=== PATIENT | female | born 1990 | race Caucasian/White ===

== ENCOUNTER → 2017-12-25 15:11 | Outpatient (CLI) | payer OTHER, SELFPAY ==
--- NOTE | 2017-12-25 15:17 | CT_ITS ---
STUDY: CT ABDOMEN AND PELVIS WITH CONTRAST REASON FOR EXAM: Female, 27 years old. Anal cancer. RADIATION DOSAGE (If Supplied By Facility): CTDIvol = ( 8.07 ) mGy, DLP = ( 306.68 ) mGycm TECHNIQUE: Transaxial images were obtained from the dome of the diaphragm to the symphysis pubis without oral contrast. 75 ml of Isovue 300 contrast was administered. Sagittal and coronal images were reconstructed. Individualized dose optimization techniques were used for this CT. COMPARISON: None. FINDINGS: The visualized lung bases are unremarkable. The visualized portions of the heart are within normal limits. Normal liver. Normal gallbladder and extrahepatic biliary system. Normal spleen. Normal pancreas. Normal bilateral adrenal glands. There are bilateral renal cysts present. Normal visualized stomach. Normal small intestine. Normal colon. There is circumferential wall thickening of the distal rectum/anus. The appendix is visualized and appears normal. Normal abdominal aorta. Normal inferior vena cava. Normal retroperitoneum. Normal urinary bladder. Within the right lower quadrant the right ovary is visualized. There are surgical clips within the inguinal region bilaterally. Within the right inguinal region there is a 2.1 x 2.1 cm fluid collection. There is a subcutaneous focus of air adjacent to surgical clips within the left inguinal region consistent with recent intervention. There is a pathologically enlarged left inguinal lymph node that measures 1.5 x 1.9 x 1.8 cm. There are prominent left external iliac lymph nodes measuring up to 8 mm in short axis. Normal osseous structures. There is a 5 mm subcutaneous nodule overlying the right lateral mid/lower hemithorax (image 14 series 602 and image 8 [address] 2). CT/Abdomen/Pelvis WITH Contrast IMPRESSION: Pathologically enlarged left inguinal lymph node concerning for underlying neoplastic involvement. Prominent left external iliac lymph nodes. Focal fluid collection within the right inguinal region likely secondary to prior intervention. Circumferential wall thickening of the distal rectum/anus which may reflect underlying neoplastic process. Indeterminate 5 mm subcutaneous soft tissue nodule overlying the right lateral mid/lower hemithorax, a ultrasound may be useful for further evaluation. Electronically Signed: Morena Hearn MD at 16:11 EDT Tel , Service support ,
[2017-12-25 15:31] LABS: CREATININE FINGERSTICK 0.8 mg/dL (0.55-1.02); EGFR FINGERSTICK > 60.0000 mL/min (>60)
== END ==
PROVIDERS: Family Provider Family Medicine; PCP Family Medicine
DX: C21.0 Malignant neoplasm of anus, unspecified (principal)
CPT/HCPCS: 74177; Q9967

== ENCOUNTER → 2018-01-04 06:35 | Outpatient (CLI) | payer OTHER, SELFPAY ==
[2017-12-31 10:33] VITALS: BMI 19.0
--- NOTE | 2018-01-04 07:00 | PET_ITS ---
EXAMINATION: FDG PET CT INDICATIONS: A 27-year-old female with history of colorectal carcinoma presenting for initial staging examination. COMPARISON EXAMINATION: CT of the abdomen and pelvis report dated 12/25/17. INDEX LESION SIZE SUV INTERPRETATION Rectum-rectal vault 29.2 mm x 40.1 mm (frame 42) 17.3 Fulfills quantitative criteria for viable neoplasm Left hemipelvis, inguinal region soft tissue adenopathy, lymph nodes 11.5 mm x 24.4 mm largest (frame 67) 8.4 (max) Fulfills quantitative criteria for viable neoplasm NON-INDEX LESION SIZE SUV INTERPRETATION Lower pelvis, uterus 15.5 mm 4.8 May warrant further investigation with pelvic ultrasound secondary to the quantitative degree of uptake TECHNIQUE: Following the intravenous administration of 14.4 mCi of F-18 deoxyglucose via the left antecubital fossa, multiplanar image acquisitions of the neck, chest, abdomen and pelvis to level of mid thigh, obtained at one hour post radiopharmaceutical administration contemporaneously interpreted with the current CT of the neck, chest, abdomen and pelvis to level of mid thigh, dated 01/04/[address] of the abdomen and pelvis report dated 12/25/17 reveal: SERUM GLUCOSE LEVEL: 89 mg/dl. HEIGHT: 63 inches. WEIGHT: 105 lbs. FINDINGS: 1. Intense increased glucose metabolism is manifest in the distal rectal vault extending to the level of the anal verge. The calculated maximum standard uptake value is 17.3. The maximal axial diameter of the corresponding metabolic, morphologic abnormality on review of CT of the abdomen and pelvis dated 01/04/18 is 29.2 mm (transverse) x 40.1 mm (AP). 2. Enhanced radiopharmaceutical concentration is multifocally defined in the left hemipelvis and left inguinal lymph node distributions generating a calculated maximum standard uptake value of 8.4. The maximal axial diameter of the largest metabolic, morphologic abnormality on review of CT of the pelvis dated 01/04/18 is 11.5 mm (transverse) x 24.4 mm (AP). 3. Normal physiologic distribution of the radiopharmaceutical is apparent in the hepatic (2.2) and splenic parenchyma, both renal units, bladder and visualized intestinal tract. There is uniform distribution of the radiopharmaceutical concentration compared on the cerebellar hemispheres and cerebral cortex. Diffuse intestinal tract activity is noted throughout all four quadrants of the abdominal-pelvic retroperitoneum, mesentery consistent with normal physiologic distribution of the radiopharmaceutical. There is increased glucose concentration noted in the anterior neck, laryngeal structures contiguous to the region of the arytenoid cartilage without evidence of soft tissue thickening most consistent with physiologic distribution of the radiopharmaceutical. Prominent glucose metabolism is defined in the lower pelvis cephalad to the urinary bladder contiguous to the uterus generating a calculated maximum standard uptake value of 4.8. The maximal axial diameter of the metabolic abnormality is approximately 15.[address] findings are as follows. CHEST: There are no parenchymal densities-nodules demonstrated in the right-left hemithorax manifesting quantitatively significant increased glucose metabolism. Bilateral axillary soft tissue densities with fatty hilus formation are ametabolic. ABDOMEN AND PELVIS: Surgical clips are identified in the bilateral inguinal regions. Right inguinal soft tissue densities are non-glucose avid. SKELETAL: There are no well-defined lytic-sclerotic changes noted in the visualized osseous skeletal structures. PET/PET/CT Tumor Base -Thigh Init IMPRESSION: 1. ABNORMAL EXAMINATION INDICATIVE OF MALIGNANT VIABLE NEOPLASM. 2. Increased radiopharmaceutical concentration defined in the distal rectum, rectal vault fulfills quantitative criteria for viable neoplasm. 3. Enhanced glucose metabolism multifocally apparent in the left hemipelvis and left inguinal regions corresponding to soft tissue adenopathy, lymph nodes fulfills quantitative criteria for viable neoplasm. 4. Facilitated Humera radiolabeled glucose radiotracer demonstrated in the lower pelvis contiguous to the uterus may be further investigated with pelvic ultrasound if clinically indicated secondary to the quantitative degree of uptake. Electronic Signature Wilbur Mcconnell D.O. Electronically Signed: Wilbur Mcconnell DO at 23:16 EDT Tel , Service support ,
== END ==
PROVIDERS: Family Provider Family Medicine; PCP Family Medicine; Visit Provider Internal Medicine Hematology & Oncology
DX: C21.0 Malignant neoplasm of anus, unspecified (principal); C77.9 Secondary and unspecified malignant neoplasm of lymph node, unspecified
CPT/HCPCS: 78815; A9552; A4216

== ENCOUNTER → 2018-01-07 16:31 | Outpatient (CLI) | payer OTHER, SELFPAY ==
[2017-12-31 10:33] VITALS: BMI 19.0
--- NOTE | 2018-01-07 16:53 | MRI_ITS ---
STUDY: MR PELVIS WITH T WITHOUT CONTRAST REASON FOR EXAM: Female, 27 years old. Malignant neoplasm of the anus. Cancer involving the distal rectum and anal canal. Rectal pain since 2016. Recent diagnosis. Surgery 12/14/2017 to remove suspected hemorrhoid turned out to be cancer. TECHNIQUE: Multisequence multiplanar MRI of the pelvis was performed without and with IV contrast, with large FOV and small FOV imaging of the pelvis oriented to the anorectum. IV contrast Gadavist 5 mL. COMPARISON: PET/CT 01/04/2018. CT abdomen and pelvis 12/25/2017. FINDINGS: Enlarged left inguinal lymph node short axis I.6 cm. There is a fluid collection in the right inguinal region measuring about 1.7 cm apparently from recent angle lymph node excisional biopsy. The left-sided inguinal lymph node was hypermetabolic on the recent PET scan. An additional adjacent smaller lymph node was also hypermetabolic. Right iliac chain, no apparent lymphadenopathy. Left iliac chain, several small lymph nodes, the largest adjacent to the distal external iliac artery measuring about 12 x 6 mm. Each of these iliac chain lymph nodes with hypermetabolic on recent PET imaging. Vagina, cervix and uterus: The uterus is sharply anteverted. Normal myometrium, normal endometrium, normal appearance of cervix and vagina. Ovaries: Each ovary contains multiple small physiologic follicles without mass or suspicious cyst. Large bowel to the rectum: Unremarkable. Anorectum: Beginning at the anorectal junction, above the puborectalis sling, and extending downward into the anus, there is marked circumferential irregular nodular thickening of the wall.. Consistent with neoplasm. The fat plane between the anorectum in the posterior vaginal wall appears to be preserved. There is no definitive extension of neoplasm beyond the serosal margin of the anorectum. There are small lymph nodes in the presacral fat, the largest measuring approximate 7 x 5 mm. These were not hypermetabolic on prior PET imaging. There is a borderline enlarged lymph node within the left sciatic notch measuring 10 x 7 mm. This was hypermetabolic on recent PET scan. There are a few tiny lymph nodes within the perirectal fat, nonspecific. The anorectal tumor appears to have a greatest craniocaudal dimension of approximately 4.9 cm, greatest thickness of the irregular wall up to 13 mm. MRI/Pelvis W/WO Contrast IMPRESSION: Irregular lobulated thickening of the wall of the anorectum is consistent with neoplasia portions of which are circumferential, concordant with the hypermetabolic activity on PET scan. Lymphadenopathy in the left sciatic notch, along the left iliac chain, and in the left inguinal region are highly suspicious for metastatic disease. These were hypermetabolic on PET CT scan. Additional small presacral lymph nodes and very small lymph nodes in the perirectal fat are nonspecific. These were not hypermetabolic on the recent PET/CT scan. Electronically Signed: Wilbur Bojorquez, at 19:39 EDT Tel , Service support ,
== END ==
PROVIDERS: Family Provider Family Medicine; PCP Family Medicine; Visit Provider Student in an Organized Health Care Education/Training Program
DX: C21.0 Malignant neoplasm of anus, unspecified (principal)
CPT/HCPCS: 72197; A9585

== ENCOUNTER 2018-02-08 02:42 | Emergency (ER) | payer OTHER, SELFPAY ==
[2017-12-31 10:33] VITALS: BMI 19.0
[2018-02-08 02:43] VITALS: BP 136/91; PULSE 121; RESP 18; TEMP 36.9; O2SAT 100; BMI 18.7
[2018-02-08 03:17] VITALS: BP 102/63; BP 119/64; BP 121/69; PULSE 111; PULSE 114; PULSE 118
[2018-02-08 03:21] LABS: Absolute Neutrophil Count 4.8 X10^3/uL (2.0-7.7); Basophil# 0.04 X10^3/uL; Basophil% 0.6 % (0-1); Eosinophil# 0.19 X10^3/uL; Eosinophils% 2.9 % (0-5); Hematocrit 31.3 % (37-47); Hemoglobin 9.7 g/dl (12.0-15.0); Mean Corpuscular Hgb 26.9 pg (27.0-32.0); Mean Corpuscular Volume 86.7 fL (81-99); Mean Platelet Vol. 8.1 fl (6.2-12.0); Monocyte# 0.47 X10^3/uL; Monocyte% 7.1 % (0-10); Neutrophil # 4.76 X10^3/uL (2.7-7.7); Neutrophil % 71.4 % (47-70); Platelet Count 294 K/mm3 (150-450); RBC Distribution Width SD 54.6 fl (35.1-43.9); Red Blood Count 3.61 M/mm3 (4.2-5.4); White Blood Count 6.7 K/mm3 (4.4-11.0)
[2018-02-08 03:23] LABS: POSITIVE COUNT NO; POSITIVE DIFFERENTIAL NO; POSITIVE MORPHOLOGY NO
[2018-02-08 03:35] LABS: Anion Gap 9 (5-15); BUN 13 mg/dL (7-18); BUN/Creat Ratio 20.7 RATIO (10-20); Calcium,Total 8.4 mg/dL (8.5-10.1); Chloride 104 mmol/L (98-107); Creatinine, Serum 0.63 mg/dL (0.55-1.02); EST Glomerular Filtration Rate 120 mL/min (>60); Est Glom Filt Rate - Afr Amer 145 mL/min (>60); Estimated Creatinine Clearance 98.25 ml/min; Glucose 120 mg/dL (74-106); Potassium 3.4 mmol/L (3.5-5.1); Sodium Level 140 mmol/L (136-145)
--- NOTE | 2018-02-08 03:43 | ED.VISSUMM ---
- ER Visit Summary Date of Service: 02/08/18 Chief Complaint: [Rectal bleeding] History of Present Illness: The patient is a 27 F [presents to the emergency department with rectal bleeding that she noted this morning when she got up to use the restroom to urinate. Patient states that when she wiped she noted there was blood from the rectum. Patient states she noticed this about 2:30 AM. Patient does have a history of rectal/anal cancer and several weeks ago had a diverting colostomy performed at [facility]. Patient is scheduled to start chemotherapy in 1 week. Patient denies feeling lightheaded or dizzy. Patient denies passing clots. Patient states that when she was having bowel movements through her rectum she had had intermittent bleeding. Patient denies any blood in her colostomy bag.] Physical Examination: [HEENT-PERRLA, EOMI. Cranial nerves II through XII grossly intact. TMs clear. Mucous membranes moist. No adenopathy. Cardiovascular-regular rate and rhythm without murmur or ectopy Lungs-clear to auscultation, chest wall stable without crepitus or subcu emphysema Abdomen-normoactive bowel sounds, soft, nontender, no rebound or rigidity, no peritoneal signs. Rectal exam-patient has some bright red blood noted around the anus without any significant active bleeding. Patient does have firm and indurated tissue noted about the anal verge and mucosa is very tender to palpation in the tissue was friable easily bleeds. No clots noted. Extremities-intact ?4, normal range of motion, normal pulses, atraumatic] Test Results: [Type and screen was ordered and is pending. CBC with differential showed a white count of 6.7, hemoglobin 9.7, hematocrit 31, platelets 294. Chemistries unremarkable.] Emergency Department Course and Treatment: [Patient had orthostatic vital signs that were negative. At this point her hemoglobin is 9.7 and 1 month ago it was 9.1. I feel patient can be discharged to home with observation and return if persistent or worsening of the bleeding.] Treatment Plan: [Patient advised to follow-up with her primary care physician or surgeon within the next 3-5 days.] Disposition: [Discharged home in stable condition] Impression: [Rectal bleeding-stable Bleeding from rectal mass] This note was generated with [employer] software. It may contain incorrect words, spelling, and punctuation that were not noted in review of the chart prior to signing ED Disposition - Plan for ED Patient: Chief Complaint: GI Bleed Referrals: Joshua Gambino DO [Primary Care Provider] -
--- NOTE | 2018-02-08 03:47 | ED.DEP ---
ED Disposition - Plan for ED Patient: Chief Complaint: GI Bleed Instructions: ED Hematochezia Stable Referrals: Joshua Gambino DO [Primary Care Provider] - Additional Instructions: see your surgeon if persistent or worsening bleeding
[2018-02-08 03:53] VITALS: BP 115/73; PULSE 104; RESP 18; O2SAT 98
--- NOTE | 2018-02-08 03:55 | NURSING ---
DID A RECTAL EXAM AND SOME BLEEDING NOTED BUT NO ACTIVE BLEEDING.
== END 2018-02-08 04:00 | disposition home or self-care (01) ==
LOC: ED 03:33
PROVIDERS: Emergency Provider Emergency Medicine; Family Provider Family Medicine; PCP Family Medicine
DX: C20 Malignant neoplasm of rectum (principal); Z93.3 Colostomy status; Z79.899 Other long term (current) drug therapy
CPT/HCPCS: 80048; 85025; 86850; 86900; 99282

== ENCOUNTER → 2018-05-14 09:29 | Outpatient (CLI) | payer MEDICAID, SELFPAY ==
[2017-12-31 10:33] VITALS: BMI 19.0
--- NOTE | 2018-05-14 | IMM_PTH ---
PATIENT: ANISH ANAYA LOC: [facility] U#:[id number] AGE/SX: 35/F ROOM: RE05/14/[address]: Dr. Shelia Lima MD : 1990 BED: DIS: SPEC #: [id number] RECD: 05/17/18 12:45 STATUS: CHUY REQ #: [id number] KIERRA: 05/14/18 00:[address]: Shelia Lima DEPT: IMMUNOHISTOCHEMISTRY RECD BY: Pallavi Norwood ENTERED: 05/17/18 12:46 SP TYPE: IMMUNO OTHR DR: Dr. Joshua Gambino DO Tissues: Vulva, NOS Procedures: RCC (add) MSH2 (add) MLH-1 (add) MSH6 (add) Anti-PMS2 (add) NAPSIN A (add) CK20 (add) CK7 (add) CK8 (add) MENDIETA-2 (add) HEP PAR (add) KI-67 (add) P53 (add) IN (add) TTF1 (add) ER (initial) PHYSICIAN & [place] [phone] SPECIMEN INFORMATION: Tissue Source: Vulvar biopsy Clinical Info: Rectal cancer Specimen Number: [id number] CPT code: 46126, 26200 x14 METHODOLOGY: Deparaffinized sections of prefer/formalin-fixed tissue or PAP/DQ stained slides are incubated with monoclonal/polyclonal antibodies/oligonucleotide probes. Localization is made via biotin free immunoperoxidase method. Appropriate controls are performed and reacted as expected. Results on target cell population are indicated in the following table: RESULTS: ANTIBODY / CLONE RESULT ER (6F11) negative IN (1E2) negative CK7 (OV-TL12/30) negative CK8 (26cksoO92) positive CK20 (KS20.8) positive TTF-1 (8G7G3/1) negative HepPar (OCh1E5) negative RCC (PN-15) negative These tests were developed and their performance characteristics determined by [facility]. They may not have been cleared or approved by the U.S. Food and Drug Administration. The FDA has determined that such clearance or approval is not necessary. INTERPRETATION: Vulvar biopsy: Poorly differentiated metastatic carcinoma, consistent with colonic primary. GREGG:magdy 05/18/18 ADDENDUM ADDENDUM ADDENDUM ADDENDUM ADDENDUM ADDENDUM ADDENDUM ADDENDUM ADDENDUM ADDENDUM ADDENDUM ADDENDUM ADDENDUM ADDENDUM ADDENDUM ADDENDUM ADDENDUM 06/02/2018 14:12 ADDENDUM 06/02/2018 14:12 ADDENDUM 06/02/2018 14:12 ADDENDUM 06/02/2018 14:12 ADDENDUM 06/02/2018 14:12 ANTIBODY / CLONE RESULT Ki-67 (30-9) positive, high P53 (DO-7) positive MSH2 (25D12) positive, weak MSH6 (44) positive MLH-1 (M1) positive PMS2 (SMM7312) positive MENDIETA-2 (SP21) positive INTERPRETATION: Vulvar biopsy: Result of Microsatellite Instability Study: Negative (no loss of mismatch protein; no microsatellite instability detected). SJ:magdy 06/02/18
--- NOTE | 2018-05-14 | VUL_PTH ---
PATIENT: ANISH ANAYA LOC: [facility] U#:[id number] AGE/SX: 35/F ROOM: RE05/14/[address]: Dr. Shelia Lima MD : 1990 BED: DIS: SPEC #: [id number] RECD: 05/14/18 14:32 STATUS: CHUY NACHO #: [id number] KIERRA: 05/14/18 00:[address]: Shelia Lima DEPT: SURGICAL PATHOLOGY RECD BY: Wilber Diaz ENTERED: 05/14/18 14:33 SP TYPE: VULVA BX OTHR DR: Dr. Joshua Gambino DO Tissues: Vulva, NOS Procedures: Surgery Specimen Level IV HEADER OPERATION: Vulva biopsy PRE-OP DIAGNOSIS: Rectal cancer TISSUE SUBMITTED: Vulva MICROSCOPIC DIAGNOSIS Vulva, punch biopsy: Poorly differentiated metastatic adenocarcinoma, consistent with colonic primary. See comment. GREGG:magdy 05/17/18 COMMENT Immunohistochemistry ([id number]) supports the above diagnosis. The tumor is entirely subepithelial in location. Please make reference to previous specimen from [facility], dated 12/14/2017, [id number], Perianal tissue with diagnosis of moderately differentiated adenocarcinoma of colonic origin, and left femoral lymph node fwith diagnosis of gianluca tissue and soft tissue with metastatic, moderately differentiated adenocarcinoma of colonic origin. MICROSCOPIC DESCRIPTION Slides are reviewed. GROSS DESCRIPTION Received is one container labeled with the patient's name and not further designated. The specimen consists of one irregular fragment of light rios soft tissue that measures 0.3 x 0.3 x 0.1 cm. The specimen is totally submitted in one cassette. / GREGG:magdy 05/14/18 TC:0 CPT: 34082 ADDENDUM ADDENDUM ADDENDUM ADDENDUM ADDENDUM ADDENDUM ADDENDUM ADDENDUM ADDENDUM ADDENDUM 08/19/2018 09:37 ADDENDUM 08/19/2018 09:37 ADDENDUM 08/19/2018 09:37 ADDENDUM 08/19/2018 09:37 ADDENDUM 08/19/2018 09:37 This addendum is added to incorporate an outside pathology consultation report. The case was examined at [facility] (#[id number]) and the following diagnosis was rendered. Vulva, punch biopsy: Positive for adenocarcinoma of colorectal origin. Please see complete above mentioned consultation report in EMR
[2018-05-14 11:26] LABS: HIV - WCH Non-Reactive (Nonreactive)
[2018-05-14 16:39] LABS: Chlamydia Trachomatis by PCR Negative (Negative); Neisserai gonorrhoeae by PCR Negative (Negative); Probe Check PASS; Sample Adequacy Control PASS; Specimen Processing Control PASS
[2018-05-16 03:06] LABS: HCV Quant. RNA PCR HCV Not Detected IU/mL (.); HEPATITIS B SURFACE AG Negative (Negative); Hepatitis A IgM Antibody Negative (Negative); Hepatitis B Core AB IgM Negative (Negative)
[2018-05-16 08:05] LABS: Hep C Antibodies <0.1 s/co ratio (0.0-0.9)
[2018-05-21 02:59] LABS: Rapid Plasmin Reagin (RPR) NONREACTIVE (NONREACTIVE)
== END ==
PROVIDERS: Family Provider Family Medicine; PCP Family Medicine; Referring Provider Obstetrics & Gynecology; Visit Provider Obstetrics & Gynecology
DX: A74.9 Chlamydial infection, unspecified (principal); A64 Unspecified sexually transmitted disease; C20 Malignant neoplasm of rectum
CPT/HCPCS: 36415; 80074; 86592; 86703; 87491; 87522; 87591; 88305; 88341; 88342

== ENCOUNTER → 2018-05-31 08:46 | Outpatient (CLI) | payer MEDICAID, SELFPAY ==
[2017-12-31 10:33] VITALS: BMI 19.0
[2018-05-31 09:13] LABS: Platelet Count 52 K/mm3 (150-450)
[2018-05-31 09:18] VITALS: BP 98/69; PULSE 97; RESP 18; TEMP 36.9; O2SAT 100; BMI 18.3
[2018-05-31 09:21] LABS: Prothrombin Time (Protime)PT. 13.6 SECONDS (11.7-14.9)
[2018-05-31 09:22] LABS: Partial Thromboplast Time 32.1 Seconds (24.1-36.2)
== END ==
PROVIDERS: Family Provider Family Medicine; PCP Family Medicine; Referring Provider Internal Medicine Hematology & Oncology; Visit Provider Internal Medicine Hematology & Oncology
DX: C20 Malignant neoplasm of rectum (principal); C77.9 Secondary and unspecified malignant neoplasm of lymph node, unspecified; R93.89 Abnormal findings on diagnostic imaging of other specified body structures
CPT/HCPCS: 36415; 85049; 85610; 85730; J7040; A4216

== ENCOUNTER → 2018-08-09 14:31 | Outpatient (CLI) | payer MEDICAID, SELFPAY ==
[2017-12-31 10:33] VITALS: BMI 19.0
[2018-08-03 09:58] VITALS: BMI 19.2
--- NOTE | 2018-08-09 14:32 | CT_ITS ---
STUDY: CT ABDOMEN AND PELVIS WITH CONTRAST REASON FOR EXAM: Female, 28 years old. RADIATION DOSAGE (If Supplied By Facility): CTDIvol = ( 7.36 ) mGy, DLP = ( 502.48 ) mGycm TECHNIQUE: Transaxial images were obtained from the dome of the diaphragm to the symphysis pubis without oral contrast. 100 ml of Isovue 300 contrast was administered. Sagittal and coronal images were reconstructed. Individualized dose optimization techniques were used for this CT. COMPARISON: Report of December 25, 2017. FINDINGS: The visualized lung bases are unremarkable. The visualized portions of the heart are within normal limits. There are multiple hypodensities seen within the right and left lobe of the liver consistent with metastases these were not present before in the report of December 25, 2017. Normal gallbladder and extrahepatic biliary system. Normal spleen. Normal pancreas. Normal bilateral adrenal glands. The right kidney revealed a small intraparenchymal cyst measures about 2 cm in diameter.. The left kidney shows tiny cortical cyst posteriorly. No hydronephrosis seen on either side. There is colostomy in the left iliac fossa area. No abnormality seen in the small or large bowel. The appendix could not be seen. There is a labral soft tissue enhancing area in the region of the rectum it may also involving the vagina for detailed anatomic assessment I recommend MRI of the pelvis for better evaluation. The uterus anteverted and to the right of the midline. There is still noted lymph nodes in the left inguinal region the largest measures today 1.3 cm. No periaortic lymphadenopathy seen. No free fluid or free air within the peritoneal cavity. CT/Abdomen/Pelvis W IV Cont ONLY IMPRESSION: Multiple liver metastases. Enhancing soft tissue in the region of the rectum with possible invasion of the vagina as this area is not properly evaluated and need MRI for better assessment. Electronically Signed: Get Evans, at 8:46 EST Tel , Service support ,
--- NOTE | 2018-08-09 14:32 | CT_ITS ---
STUDY: CT CHEST WITH CONTRAST REASON FOR EXAM: Female, 28 years old. Rectal CA RADIATION DOSAGE (If Supplied By Facility): CTDIvol = ( 7.36 ) mGy, DLP = ( 502.48 ) mGycm TECHNIQUE: Transaxial imaging was performed following intravenous administration of 100 ml of Isovue 300 contrast material. Individualized dose optimization techniques were used for this CT. COMPARISON: None. FINDINGS: The lungs are expanded. Multiple pulmonary nodules are noted within the right lung throughout all lobes with majority of the nodules measuring 5 mm or less. There is a upper lobe lobulated mass measuring 1.2 cm. A right lower lobe slightly irregular cavitary nodule measures 6 mm. Multiple nodules in the left lung are less than 5 mm in size. The largest cyst a 6 mm left upper lobe nodule. Normal heart and pericardium. Normal mediastinum. Normal hilar regions. Normal enhanced pulmonary arteries. Normal aorta arch and descending thoracic aorta. Normal osseous structures. There are several hepatic nodules measuring up to 1.7 cm. Left renal cyst. CT/Chest WITH Contrast IMPRESSION: Multiple pulmonary nodules are noted bilaterally compatible metastasis. Hepatic lesions are noted compatible metastasis. Electronically Signed: Amilcar Cortés DO at 23:56 EST Tel [phone], Service support ,
== END ==
PROVIDERS: Referring Provider Internal Medicine Hematology & Oncology; Visit Provider Internal Medicine Hematology & Oncology
DX: C20 Malignant neoplasm of rectum (principal); C77.9 Secondary and unspecified malignant neoplasm of lymph node, unspecified; C78.7 Secondary malignant neoplasm of liver and intrahepatic bile duct; C79.2 Secondary malignant neoplasm of skin; C78.00 Secondary malignant neoplasm of unspecified lung
CPT/HCPCS: 71260; 74177; Q9967; A4216

== ENCOUNTER → 2018-12-02 14:34 | Outpatient (CLI) | payer MEDICAID, SELFPAY ==
[2017-12-31 10:33] VITALS: BMI 19.0
[2018-11-23 10:10] VITALS: BMI 19.6
--- NOTE | 2018-12-02 14:35 | CT_ITS ---
STUDY: CT ABDOMEN AND PELVIS WITH CONTRAST REASON FOR EXAM: Female, 28 years old. Anal cancer with completion of chemotherapy 2 weeks ago RADIATION DOSAGE (If Supplied By Facility): CTDIvol = ( 6.10 ) mGy, DLP = ( 470.84 ) mGycm TECHNIQUE: Transaxial images were obtained from the dome of the diaphragm to the symphysis pubis without oral contrast. 100ml IV Isovue 250 was administered. Sagittal and coronal images were reconstructed. Individualized dose optimization techniques were used for this CT. COMPARISON: 08/09/2018 FINDINGS: Lung bases described on chest CT, performed concurrently. Multiple ill-defined low-density lesions of the liver once again identified some of which have INCREASED in size. For instance, the left lateral lesion on image 22 currently measures 1.6 x 1.7 cm (previously measured 1.1 x 1.2 cm. Lesion in the medial segment of the left hepatic lobe on image 25 has also increased in size currently measuring 1.2 x 1.4 cm (previously measured 0.9 x 1.0 cm). Low-density lesion in the right lower hepatic lobe on image 37 currently measures 1.4 x 1.2 cm (previously measured 0.7 x 0.8 cm). No definitive new lesion is seen, however. Normal gallbladder and extrahepatic biliary system. Normal spleen. Normal pancreas. Normal bilateral adrenal glands. Simple cysts of the kidneys are stable. Normal left kidney. Normal visualized stomach. Left lower quadrant colostomy is identified. Limited evaluation of the rectum due to lack of distention and would better be assessed with MRI. There is non-visualization of the appendix. Normal abdominal aorta. Normal inferior vena cava. Normal retroperitoneum. Normal urinary bladder. There is trace amount of free fluid in the dependent portion of pelvis. Normal abdominal wall. Normal osseous structures. CT/Abdomen/Pelvis W IV Cont ONLY IMPRESSION: 1. Since 08/09/2018, UNFAVORABLE change. Increased size of multiple hepatic lesions compatible with metastasis (PET positive on 05/24/2018). 2. Limited evaluation of the rectum. Would better be assessed with MRI. Electronically Signed: Billy Castillo MD at 15:25 EDT , Service support ,
--- NOTE | 2018-12-02 14:35 | CT_ITS ---
STUDY: CT CHEST WITH CONTRAST REASON FOR EXAM: Female, 28 years old. Anal cancer with completion of chemotherapy 2 weeks ago RADIATION DOSAGE (If Supplied By Facility): CTDIvol = ( 6.10 ) mGy, DLP = ( 470.84 ) mGycm TECHNIQUE: Transaxial imaging was performed following intravenous administration of 100ml IV Isovue 300. Multiplanar coronal and sagittal images were reformatted. Individualized dose optimization techniques were used for this CT. COMPARISON: 08/09/2018 FINDINGS: Numerous bilateral noncalcified pulmonary nodules are once again identified. Several of the nodules have increased in size since the prior study. For instance, in the lateral left upper lobe, 5 mm nodule on image 40 previously measured 3.3 mm. Nodule adjacent to the right major fissure in the right upper lobe on image 42 currently measures up to 5.4 mm (previously measured 3.0 mm). Oval-shaped noncalcified nodule in the right lower lobe on image 33 measures up to 1.2 cm (previously measured 1.1 cm). Largest nodule in the left upper lobe measures 0.7 x 1.0 cm on the current study and measured 0.6 x 0.5 cm on the prior study. The nodule is more lobular contours as compared to the prior study [id number]. The dominant nodule in the right upper lobe on image 22 currently measures 1.1 x 0.9 cm. No definitive new nodule is seen.. There is no demonstrated pleural abnormality. Normal heart and pericardium. Normal mediastinum. Normal hilar regions. Normal enhanced pulmonary arteries. Normal aorta arch and descending thoracic aorta. Right chest port is stable. Normal osseous structures. Upper abdomen described on abdomen/pelvis CT, reported separately. CT/Chest WITH Contrast IMPRESSION: 1. Since 08/09/2018, UNFAVORABLE change. Increased size of multiple noncalcified pulmonary nodule/metastasis. 2. Right chest port. 3. No mediastinal or hilar adenopathy. Electronically Signed: Billy Castillo MD at 15:33 EDT , Service support ,
[2018-12-02] MEDS: 0.9% Saline Lock 10 ML Syringe IV (15:05)
== END ==
PROVIDERS: Family Provider Family Medicine; PCP Family Medicine; Referring Provider Internal Medicine Hematology & Oncology; Visit Provider Internal Medicine Hematology & Oncology
DX: C20 Malignant neoplasm of rectum (principal); C21.0 Malignant neoplasm of anus, unspecified; C78.00 Secondary malignant neoplasm of unspecified lung; C78.7 Secondary malignant neoplasm of liver and intrahepatic bile duct
CPT/HCPCS: 71260; 74177; Q9967; A4216

== ENCOUNTER 2019-01-22 10:19 | Emergency (ER) | payer MEDICAID, SELFPAY ==
[2017-12-31 10:33] VITALS: BMI 19.0
[2018-12-07 10:34] VITALS: BMI 20.5
[2019-01-22 10:20] VITALS: BP 113/87; PULSE 136; RESP 18; TEMP 37.1; O2SAT 94; BMI 19.9
--- NOTE | 2019-01-22 11:10 | ED.VIS.GEN ---
History of Present Illness Chief Complaint: GI Bleed Informant: Patient, Family Onset: Today Context: Sudden Onset Timing: Continuous Quality: Blood in ostomy Current Severity: Severe Maximum Severity: Severe Associated Symptoms: Denies Narrative: 28-year-old female currently receiving chemotherapy at [facility] for rectal cancer noticed bright red blood mixed in with stool in her ostomy bag this morning. She denies having a history of this. She has had the colostomy for about 1 year. She is not had any abdominal pain or fevers, vomiting, or loose stool noted. She is not on blood thinners. She is not lightheaded or dizzy. Denies history of similar symptoms. Past Medical History - Allergies and Home Meds Allergies/Adverse Reactions: Allergies No Known Allergies Allergy (Verified 01/22/19 10:22) Primary Care Physician: Joshua Gambino DO [NON-STAFF] - Smoking Status: Never smoker Review of Systems All systems negative except as indicated Gastrointestinal: Reports: Hematochezia Physical Exam Vital Signs/Narrative: Vital Signs Temp Pulse Resp BP Pulse Ox 01/22/19 10:20 98.8 F 136 H 18 113/87 H 94 Inital Vital Signs reviewed: Yes General: Well nourished, Well developed, No Acute Distress Head: Normocephalic, Atraumatic Eyes: Perrl, EOMI Neck: Supple, Nontender Cardiovascular: Regular rate, Regular rhythm Respiratory: No distress, CTA bilaterally Abdomen: Soft - Colostomy bag noted. There is bright red blood mixed in with stool. There is no melena. There are no blood clots noted. There is no active bleeding., Nontender Back: Nontender Extremities: Nontender Skin: Normal color, No rash Neurological: Alert, Oriented x3 Psychological: Normal affect Diagnostic/Tx/Re-eval - Medical Decision Making On exam there is a small amount of blood mixed in with the stool. There is no active bleeding. Her bag is not filled with blood. There are no clots. There is no surrounding signs of infection on her ostomy. Her labs are unremarkable. Hemoglobin is normal. She is an appointment in 48 hours with her doctor for close follow-up, her oncologist at [facility]. Vital signs are stable and do not feel further work-up is indicated at this time. Discussed this with patient. She is agreeable. She was advised to return here for worsening symptoms if they develop prior to her appointment with her oncologist. She is agreeable with this as well. She was discharged. ED Disposition - Plan for ED Patient: Disposition: Home or Assisted Living Diagnosis: Blood present in stool, Complication of ostomy, History of rectal cancer Instructions: ED Hematochezia Stable Referrals: Joshua Gambino DO [NON-STAFF] -
[2019-01-22] MEDS: 0.9% Normal Saline 1,000 ML 1000 ML IV (11:19)
[2019-01-22 11:30] LABS: Absolute Lymphocyte Count 0.63 X10^3/ul (0.83-4.51); Absolute Neutrophil Count 5.1 X10^3/uL (2.0-7.7); Basophil# 0.04 X10^3/uL; Basophil% 0.6 % (0-1); Eosinophil# 0.21 X10^3/uL; Eosinophils% 3.1 % (0-5); Hematocrit 35.1 % (37-47); Hemoglobin 11.4 g/dl (12.0-15.0); Lymphocyte # 0.63 X10^3/ul (4.0); Lymphocyte % 9.3 % (19-41); Mean Corp Hgb Conc 32.5 g/gl (32-36); Mean Corpuscular Hgb 28.1 pg (27.0-32.0); Mean Corpuscular Volume 86.5 fL (81-99); Mean Platelet Vol. 7.8 fl (6.2-12.0); Monocyte# 0.76 X10^3/uL; Monocyte% 11.3 % (0-10); Neutrophil # 5.09 X10^3/uL (2.7-7.7); Neutrophil % 75.6 % (47-70); Platelet Count 275 K/mm3 (150-450); RBC Distribution Width CV 13.2 % (11.6-14.6); Red Blood Count 4.06 M/mm3 (4.2-5.4); White Blood Count 6.7 K/mm3 (4.4-11.0)
[2019-01-22 11:32] LABS: POSITIVE COUNT NO; POSITIVE DIFFERENTIAL NO; POSITIVE MORPHOLOGY NO
[2019-01-22 11:46] LABS: ALB/GLOB Ratio 0.7 RATIO (0.9-2.4); AST(SGOT) 41 U/L (15-37); Alanine Aminotransfer ALT/SGPT 39 U/L (13-56); Albumin, Serum 3.1 g/dL (3.2-5.0); Alkaline Phosphatase 169 U/L (45-117); Anion Gap 6 (5-15); BUN 11 mg/dL (7-18); BUN/Creat Ratio 18.1 RATIO (10-20); Calcium,Total 8.9 mg/dL (8.5-10.1); Chloride 104 mmol/L (98-107); Creatinine, Serum 0.61 mg/dL (0.55-1.02); EST Glomerular Filtration Rate 124 mL/min (>60); Est Glom Filt Rate - Afr Amer 150 mL/min (>60); Globulin 4.4 g/dL (2.2-4.2); Glucose 107 mg/dL (74-106); Lipase 60 U/L (73-393); Potassium 3.9 mmol/L (3.5-5.1); Protein, Total 7.5 g/dL (6.4-8.2); Sodium Level 136 mmol/L (136-145)
[2019-01-22 13:04] VITALS: BP 119/82; PULSE 88; RESP 15
== END 2019-01-22 13:33 | disposition home or self-care (01) ==
PROVIDERS: Emergency Provider Physician Assistant Medical
DX: K92.1 Melena (principal); K94.00 Colostomy complication, unspecified; C20 Malignant neoplasm of rectum
CPT/HCPCS: 36591; 80053; 83690; 85025; 96360; 96361; 99284; J7030; A4216